=== PATIENT | female | born 1950 | race Hispanic/Latino ===

== ENCOUNTER → 2017-08-29 | Outpatient (CLI) | payer MEDICARE, OTHER ==
[~2017-08-29] MED LIST: ASPIRIN CHEW81 MG PO; AZOR 10-40 MG1 EACH; HEMOCYTE PLUS1 EACH PO; HYDRALAZINE HCL25 MG PO; PANTOPRAZOLE SO40 MG PO; PROZAC20 MG; TRIAMTERENE-HCTZ1 EA PO
--- NOTE | 2017-08-29 19:47 | Diagnostic Imaging Report ---
PROCEDURE:X-RAY ABDOMEN - KUB COMPARISON:Patients [facility], DX, ABDOMEN-1VIEW (KUB), 02/27/2017, 9:49. INDICATIONS:CALCULUS OF THE KIDNEY FINDINGS: There is a non-obstructed bowel-gas pattern with moderate amount of retained stool, which obscures the renal shadows. 1.3 cm, oval-shaped well-circumscribed radiopaque density projecting in the left upper quadrant, likely represents a pill, located located in the stomach. No radiopaque densities project over the renal shadows or expected course of the ureters. Stable amorphous calcification projecting in the midpelvis, likely representing a calcified fibroid. No acute bony abnormalities. Degenerative changes in the lumbosacral spine CONCLUSION: No calcifications project over the genitourinary tract. Carson Bolivar M.D. Dictated by: Carson Bolivar M.D. on 08/29/2017 at 19:54 Electronically approved by: Carson Bolivar M.D. on 08/29/2017 at 19:54
== END ==
LOC: RAD 08:55
PROVIDERS: ATTEND Urology
DX: N20.0 Calculus of kidney (principal)
CPT/HCPCS: 74000

== ENCOUNTER 2018-02-01 00:26 | Emergency (ER) | payer OTHER, MEDICARE ==
[~2018-02-01] VITALS: Ht 152.4 cm; Wt 71.7 kg
--- OUTSIDE RECORDS SUMMARY | 2018-02-01 00:31 | XMS REPORT ---
Author [facility] Address Unknown Phone Unavailable Care Team Providers Care Hogshead Cooper Name Role Phone MALA ARAGON Unavailable Unavailable Problems This patient has no known problems. Allergies, Adverse Reactions, Alerts This patient has no known allergies or adverse reactions. Medications This patient has no known medications. Results Test Description Test Time Test Comments Text Results Atomic Results Result Comments ABDOMEN-1VIEW (KUB) [place] [address] Patient Name: LAVERN KOVACS MR #: [id number] : 1950 Age/Sex: 66/F Req #: [id number] Adm Physician: Ordered by: MALA ARAGON MD Report #: [id number] Location: [facility] Room/Bed: Procedure: [id number] DX/ABDOMEN-1VIEW (KUB) Exam Date: 08/29/17 Exam Time: 0900 REPORT STATUS: Signed PROCEDURE: X-RAY ABDOMEN - KUB COMPARISON: [facility], DX, ABDOMEN-1VIEW ( KUB), 02/27/2017, 9:49. INDICATIONS: CALCULUS OF THE KIDNEY FINDINGS: There is a non-obstructed bowel-gas pattern with moderate amount of retained stool, which obscures the renal shadows. 1.3 cm, oval-shaped well-circumscribed radiopaque density projecting in the left upper quadrant, likely represents a pill, located located in the stomach. No radiopaque densities project over the renal shadows or expected course of the ureters. Stable amorphous calcification projecting in the midpelvis, likely representing a calcified fibroid. No acute bony abnormalities. Degenerative changes in the lumbosacral spine CONCLUSION: No calcifications project over the genitourinary tract. Meagan Bolivar M.D. Dictated by: Meagan Bolivar M.D. on 08/29/2017 at 19:54 Electronically approved by : Meagan Bolivar M.D. on 08/29/2017 at 19:54 Dictated By : MEAGAN BOLIVAR MD 53 Transcribed By: CIARAN on 08/29/171953 COPY TO: MALA ARAGON MD
[2018-02-01 01:39] LABS: CLARITY,URINE CLOUDY (CLEAR); COLOR,URINE RED (YELLOW); LEUKOCYTE ESTERASE ,URINE 1+ (NEGATIVE)
[2018-02-01 01:40] LABS: BILIRUBIN,URINE NEGATIVE (NEGATIVE); KETONES,URINE NEGATIVE (NEGATIVE); NITRITE,URINE NEGATIVE (NEGATIVE); PROTEIN,URINE DIPSTICK 2+ (NEGATIVE); URINE UROBILINOGEN 0.2 mg/dL (0.2 - 1)
[2018-02-01 02:00] LABS: BACTERIA,URINE RARE /HPF; EPITHELIAL CELLS,URINE RARE /LPF; WBC,URINE (MAN) 21-50 /HPF (0-5)
[2018-02-01 02:01] LABS: RBC,URINE >50 /HPF (0-5)
[2018-02-01] MEDS ORDERED: CEFTRIAXONE SOD 1 GM VIAL IV STA (02:04)
[2018-02-01] MEDS ORDERED: SODIUM CHLORIDE 0.9% 500ML 500 ML IV ONE (02:15)
[2018-02-01 02:34] LABS: BASOPHILS # (AUTO) 0.1 (0.0-0.1); BASOPHILS % 0.4 % (0.0-1.0); EOSINOPHILS % 0.2 % (0.0-6.0); HEMATOCRIT 36.9 % (34.2-44.1); HEMOGLOBIN 11.9 g/dL (12.0-16.0); MEAN CORPUSCULAR HGB CONC 32.2 g/dL (31-35); MEAN CORPUSCULAR VOLUME 86.8 fL (81-99); MONOCYTES # (AUTO) 0.9 (0.2-0.8); MONOCYTES % 7.1 % (4.4-11.3); NEUTROPHILS % 76.8 % (38.7-80.0); PLATELET COUNT 209 x10e3/uL (140-360); RED BLOOD COUNT 4.25 x10e6/uL (3.6-5.1); RED CELL DISTRIBUTION WIDTH 13.4 % (11.7-14.4)
--- NOTE | 2018-02-01 02:47 | Diagnostic Imaging Report ---
EXAM: CT ABDOMEN AND PELVIS without IV CONTRAST INDICATION: Hematuria, painful urination COMPARISON: CT of the abdomen and pelvis January 21, 2016 TECHNIQUE: The abdomen and pelvis were scanned using a multidetector helical scanner. Coronal and sagittal reformations were obtained. Renal stone protocol performed. IV Contrast: None Oral Contrast: None CTDIvol has been reviewed. It is below the limits set by the Radiation Protocol Committee (RPC). FINDINGS: LOWER THORAX: No consolidations LIVER: No masses BILIARY: Normal gallbladder. No ductal dilation. SPLEEN: No masses PANCREAS: Fatty infiltration ADRENALS: Stable 1 cm left adrenal gland nodule RIGHT KIDNEY: No nephroureterolithiasis or hydronephrosis. LEFT KIDNEY: No nephroureterolithiasis or hydronephrosis. GI TRACT: No wall thickening or obstruction. Normal appendix. VESSELS: Mild atherosclerotic changes of the abdominal aorta without aneurysm. PERITONEUM/RETROPERITONEUM: No free air or fluid LYMPH NODES: No lymphadenopathy REPRODUCTIVE ORGANS: Calcified uterine fibroids. BLADDER: The bladder is decompressed. Mild pericystic inflammation. SOFT TISSUES: Normal BONES: No suspicious bone lesions. Grade 1 anterolisthesis of L5 with respect to S1. IMPRESSION: No nephroureterolithiasis or hydronephrosis. The bladder is decompressed however there appears to be surrounding inflammation. This can be seen in cystitis. Signed by: Dr. Alejandra Parry M.D. on 02/01/2018 2:43 AM
[2018-02-01 02:54] LABS: ALANINE AMINOTRANSFERASE 12 IU/L (0-55); ALBUMIN/GLOBULIN RATIO 1.1 (0.8-2.0); ALKALINE PHOSPHATASE 87 IU/L (40-150); ANION GAP 17.8 mmol/L (8-16); BLOOD UREA NITROGEN 17 mg/dL (7-26); BUN/CREATININE RATIO 23 (6-25); CALCIUM 9.6 mg/dL (8.4-10.2); CARBON DIOXIDE 24 mmol/L (22-29); CHLORIDE 100 mmol/L (98-107); CREATININE, SERUM 0.74 mg/dL (0.57-1.11); EST GLOMERULAR FILTRATION RATE > 60 ML/MIN (60-); GLUCOSE 116 mg/dL (74-118); POTASSIUM 3.8 mmol/L (3.5-5.1); SODIUM 138 mmol/L (136-145)
[2018-02-01] MEDS ORDERED: CEFTRIAXONE SOD 1 GM VIAL IM STA (03:21)
== END 2018-02-01 04:19 | disposition home or self-care (01) ==
LOC: ER 00:26
DX: R30.0 Dysuria (principal); N30.91 Cystitis, unspecified with hematuria; R10.2 Pelvic and perineal pain
CPT/HCPCS: 36415; 74176; 80053; 81001; 83735; 85025; 87086; 96372; 99283; J0696

== ENCOUNTER → 2018-03-05 | Day surgery (SDC) | payer MEDICARE, OTHER ==
--- NOTE | 2018-02-27 16:12 | Diagnostic Imaging Report ---
PROCEDURE: Frontal and lateral views of the chest. COMPARISON: Patients [facility], , CHEST 2 VIEWS, 11/06/2016, 14:42. INDICATIONS: PRE-OP FINDINGS: Lines/tubes: None. Lungs: The lungs are well inflated and clear. There is no evidence of pneumonia or pulmonary edema. Pleura: There is no pleural effusion or pneumothorax. Heart and mediastinum: Cardiac silhouette is unremarkable. Pulmonary vasculature is normal. Tortuous aorta. Bones: No acute bony abnormality. IMPRESSION: 1. No acute cardiopulmonary abnormalities. Carson Bolivar M.D. Dictated by: Carson Bolivar M.D. on 02/27/2018 at 16:15 Electronically approved by: Carson Bolivar M.D. on 02/27/2018 at 16:15
[2018-02-27 16:13] LABS: BASOPHILS % 0.5 % (0.0-1.0); EOSINOPHILS # (AUTO) 0.1 (0.0-0.4); EOSINOPHILS % 0.7 % (0.0-6.0); HEMATOCRIT 35.8 % (34.2-44.1); HEMOGLOBIN 11.8 g/dL (12.0-16.0); LYMPHOCYTES # (AUTO) 2.6 (1.0-3.2); MONOCYTES # (AUTO) 0.8 (0.2-0.8); MONOCYTES % 9.4 % (4.4-11.3); NEUTROPHILS # (AUTO) 4.8 (2.1-6.9); NEUTROPHILS % 57.9 % (38.7-80.0); PLATELET COUNT 227 x10e3/uL (140-360); RED BLOOD COUNT 4.21 x10e6/uL (3.6-5.1); RED CELL DISTRIBUTION WIDTH 13.7 % (11.7-14.4)
[~2018-03-05] MED LIST changes: +BENAZEPRIL-HCT1 EAC3 PO; +CEFTRIAXONE SOD 1 GM VIAL ONE; +DEXAMETHASONE SOD PHOS INJ 4 MG/ML VIAL ONE; +FENTANYL CITRATE/PF 100MCG/2 ML INJ ONE; +IOPAMIDOL 610MG/1ML 300 MG/ML VIAL IV ONE; +LIDOCAINE HCL 2% LOCAL INJ 5 ML SDV VIAL INJ ONE; +MIDAZOLAM HCL 2 MG/2 ML VIAL ONE; +ONDANSETRON HCL INJ 2 MG/ML VIAL ONE; +POTASSIUM CHLORIDE PO; +PROPOFOL IV EMULSION 10 MG/ML 20 ML VIAL ONE; +SEVOFLURANE INHAL SOLN 250 ML PEN BTL ONE
--- NOTE | 2018-03-05 11:41 | Operative Report ---
DATE OF PROCEDURE: March 05, 2018 PREOPERATIVE DIAGNOSIS: Gross hematuria. POSTOPERATIVE DIAGNOSIS: Gross hematuria. PROCEDURES 1. Cystourethroscopy with bilateral ureteral catheterization and bilateral retrograde pyelograms. 2. Supervision of fluoroscopy. 3. Interpretation of retrograde pyelography. ANESTHESIA: General. ESTIMATED BLOOD LOSS: Minimal. COMPLICATIONS: None. INDICATIONS: Ms. Dennis is a 67-year-old female with a history of gross hematuria. She and I had a long discussion about alternatives, risks and benefits including doing nothing, cystoscopy IVP, retrograde pyelography, ultrasound. Due to the nephrotoxic risks of dye and renal insufficiency, she elected to proceed with retrograde pyelogram. PROCEDURE IN DETAIL: After informed consent was obtained, the patient was preoperatively identified and placed on the operating table, and underwent general anesthesia by the anesthesia service. Was placed in the dorsal lithotomy position and sterilely prepped and draped in the standard fashion for cystoscopy. A 22.5-Japanese cystoscope was inserted per urethra. It was noted to be normal. There were no tumors and no stones. Both ureteral orifices were within normal anatomic location and position and seen to efflux clear urine. Bilateral retrograde pyelograms were performed, which were normal. The bladder was drained. The patient was awakened from anesthesia and transported to the recovery room in excellent condition. SUPERVISION OF FLUOROSCOPY, INTERPRETATION OF RETROGRADE URETERAL PYELOGRAPHY: I was present throughout the entire procedure and I supervised the use of fluoroscopy as there was no radiologist present. Attention was turned toward the left and right ureteral orifices, catheterized with an 8-Japanese cone-tipped catheter. In a retrograde fashion, contrast was injected revealing delicate ureters, delicate pelviceal systems. No evidence of filling defects. No evidence of hydronephrosis. IMPRESSION: Normal retrograde pyelograms. Job#: [id number] CHARLA
== END | disposition home or self-care (01) ==
LOC: OR 05:18
PROVIDERS: ATTEND Urology
DX: N39.0 Urinary tract infection, site not specified (principal); Z87.442 Personal history of urinary calculi; R35.1 Nocturia; I10 Essential (primary) hypertension; R32 Unspecified urinary incontinence; Z01.810 Encounter for preprocedural cardiovascular examination; Z01.812 Encounter for preprocedural laboratory examination; Z01.818 Encounter for other preprocedural examination; Z79.82 Long term (current) use of aspirin; Z68.33 Body mass index [BMI] 33.0-33.9, adult
CPT/HCPCS: 36415; 52005; 71046; 74420; 85025; 93005; J0696; J1100; J2001; J2250; J2405; Q9967

== ENCOUNTER 2018-08-05 07:44 | Emergency (ER) | payer MEDICARE, OTHER ==
[~2018-08-05] VITALS: Ht 152.4 cm; Wt 71.7 kg
[~2018-08-05 07:44] MED LIST changes: -CEFTRIAXONE SOD 1 GM VIAL ONE; -DEXAMETHASONE SOD PHOS INJ 4 MG/ML VIAL ONE; -FENTANYL CITRATE/PF 100MCG/2 ML INJ ONE; -IOPAMIDOL 610MG/1ML 300 MG/ML VIAL IV ONE; -LIDOCAINE HCL 2% LOCAL INJ 5 ML SDV VIAL INJ ONE; -MIDAZOLAM HCL 2 MG/2 ML VIAL ONE; -ONDANSETRON HCL INJ 2 MG/ML VIAL ONE; -PROPOFOL IV EMULSION 10 MG/ML 20 ML VIAL ONE; -SEVOFLURANE INHAL SOLN 250 ML PEN BTL ONE
[2018-08-05] MEDS ORDERED: ACETAMINOPHEN 325 MG TAB PO ONE (08:30)
[2018-08-05] MEDS ORDERED: CEFTRIAXONE SOD 1 GM VIAL IM ONE (08:30)
[2018-08-05 09:25] LABS: CLARITY,URINE CLEAR (CLEAR); COLOR,URINE YELLOW (YELLOW); LEUKOCYTE ESTERASE ,URINE 1+ (NEGATIVE); NITRITE,URINE NEGATIVE (NEGATIVE); PROTEIN,URINE DIPSTICK NEGATIVE (NEGATIVE)
[2018-08-05 09:26] LABS: BILIRUBIN,URINE NEGATIVE (NEGATIVE); EPITHELIAL CELLS,URINE RARE /LPF; KETONES,URINE NEGATIVE (NEGATIVE); RBC,URINE 0-5 /HPF (0-5); URINE UROBILINOGEN 0.2 mg/dL (0.2 - 1)
[2018-08-05] MEDS ORDERED: LIDOCAINE HCL 1% 2 ML AMP ONE (09:30)
[2018-08-05 09:42] VITALS: BP 142/72
== END 2018-08-05 10:20 | disposition home or self-care (01) ==
LOC: ER 07:44
DX: R10.2 Pelvic and perineal pain (principal); N30.00 Acute cystitis without hematuria; I10 Essential (primary) hypertension
CPT/HCPCS: 81001; 99282; J0696; J2001

== ENCOUNTER → 2018-09-17 | Outpatient (CLI) | payer MEDICARE, OTHER ==
--- NOTE | 2018-09-17 15:51 | Diagnostic Imaging Report ---
Exam: Abdominal film Clinical History: Calculus of kidney Comparison: CT abdomen and pelvis without contrast 02/01/2018 DISCUSSION: Frontal view of the abdomen shows a nonobstructive bowel gas pattern with mild amount of retained stool.There are no dilated, air-filled loops of bowel. No radiopaque densities project over the renal shadows or expected course of the ureters. Stable calcified fibroids in the mid pelvis. 7 mm oval-shaped radiopaque density projecting in the left mid to lower quadrant likely represents bowel contents. No acute bone abnormality. Degenerative changes in the lumbosacral spine and bilateral hip joints. IMPRESSION: 1. Nonobstructive bowel gas pattern. 2. No radiopaque densities project over the renal shadows or expected course of the ureters. The staff physician below has personally reviewed this exam on the date of dictation. Signed by: Dr. Carson Bolivar M.D. on 09/17/2018 3:48 PM
== END ==
LOC: RAD 11:31
PROVIDERS: ATTEND Urology
DX: N20.0 Calculus of kidney (principal)
CPT/HCPCS: 74018

== ENCOUNTER 2018-11-10 11:14 | Emergency (ER) | payer MEDICARE, OTHER ==
[~2018-11-10] VITALS: Ht 152.4 cm; Wt 71.7 kg
[2018-11-10] MEDS ORDERED: HEMATINIC-FOLI1 EACH PO (11:41)
[2018-11-10] MEDS ORDERED: VITAMIN C500 M1 PO (11:41)
[2018-11-10] MEDS ORDERED: CALCIUM 500+D1 EACH PO (11:41)
[2018-11-10 12:22] LABS: BASOPHILS % 0.4 % (0.0-1.0); EOSINOPHILS % 0.3 % (0.0-6.0); HEMATOCRIT 38.6 % (34.2-44.1); HEMOGLOBIN 12.4 g/dL (12.0-16.0); LYMPHOCYTES # (AUTO) 1.9 (1.0-3.2); MEAN CORPUSCULAR HEMOGLOBIN 27.9 pg (28-32); MEAN CORPUSCULAR HGB CONC 32.1 g/dL (31-35); MEAN CORPUSCULAR VOLUME 86.7 fL (81-99); MONOCYTES # (AUTO) 0.6 (0.2-0.8); MONOCYTES % 8.1 % (4.4-11.3); NEUTROPHILS # (AUTO) 4.6 (2.1-6.9); NEUTROPHILS % 64.6 % (38.7-80.0); PLATELET COUNT 237 x10e3/uL (140-360); RED BLOOD COUNT 4.45 x10e6/uL (3.6-5.1); RED CELL DISTRIBUTION WIDTH 13.8 % (11.7-14.4)
[2018-11-10 12:24] LABS: CLARITY,URINE CLEAR (CLEAR); COLOR,URINE YELLOW (YELLOW)
[2018-11-10 12:25] LABS: BILIRUBIN,URINE NEGATIVE (NEGATIVE); KETONES,URINE NEGATIVE (NEGATIVE); LEUKOCYTE ESTERASE ,URINE NEGATIVE (NEGATIVE); NITRITE,URINE NEGATIVE (NEGATIVE); PROTEIN,URINE DIPSTICK NEGATIVE (NEGATIVE); URINE UROBILINOGEN 0.2 mg/dL (0.2 - 1)
[2018-11-10 12:29] LABS: EPITHELIAL CELLS,URINE FEW /LPF; RBC,URINE 0-5 /HPF (0-5); WBC,URINE (MAN) 0-5 /HPF (0-5)
[2018-11-10] MEDS ORDERED: ONDANSETRON HCL 4 MG ORAL DISINTEGRATING TAB PO ONE (12:30)
[2018-11-10 12:32] LABS: INR 0.92; PROTHROMBIN TIME 12.8 seconds (11.9-14.5)
[2018-11-10 12:33] LABS: PARTIAL THROMBOPLASTIN TIME 36.6 seconds (23.8-35.5)
[2018-11-10 12:42] LABS: ALANINE AMINOTRANSFERASE 13 IU/L (0-55); ALBUMIN 4.1 g/dL (3.5-5.0); ALKALINE PHOSPHATASE 93 IU/L (40-150); ANION GAP 13.6 mmol/L (8-16); BLOOD UREA NITROGEN 16 mg/dL (7-26); BUN/CREATININE RATIO 23 (6-25); CALCIUM 9.4 mg/dL (8.4-10.2); CARBON DIOXIDE 26 mmol/L (22-29); CHLORIDE 102 mmol/L (98-107); CREATINE KINASE 40 IU/L (29-168); CREATININE, SERUM 0.71 mg/dL (0.57-1.11); EST GLOMERULAR FILTRATION RATE > 60 ML/MIN (60-); GLUCOSE 98 mg/dL (74-118); POTASSIUM 3.6 mmol/L (3.5-5.1); SODIUM 138 mmol/L (136-145)
--- NOTE | 2018-11-10 12:52 | Diagnostic Imaging Report ---
Exam: Head CT without contrast. Indication: Dizziness, weakness for the last few days. Comparisons: Head CT 11/27/2016 (report only). Head CT 11/10/2014. Technique: Axial images were obtained from the skull base to the vertex. Coronal and sagittal images reconstructed from the axial data. Dose modulation, iterative reconstruction, and/or weight based adjustment of the mA/kV was utilized to reduce the radiation dose to as low as reasonably achievable. Findings: Scalp/skull: No abnormalities. Extra-axial spaces: No masses. No fluid collections. Brain sulci: Mildly prominent. Ventricles: Mild compensatory dilatation. No hydrocephalus. Parenchyma: Few scatter hypodensities in the supratentorial white matter are most likely age-related small vessel ischemic changes. No masses, hemorrhage, acute or chronic cortical vascular insults. Sellar/suprasellar region: No abnormalities. Craniocervical junction: Patent foramen magnum. No Chiari one malformation. Incidental findings: Atherosclerotic calcifications in the carotid siphons . Impression: 1. No acute abnormalities. 2. Mild chronic microvascular ischemic changes. A preliminary report was provided by Dr. Malone on 11/10/2018 12:51 PM. The preliminary report was reviewed and a final report issued by Dr. Valdez neuroradiologist on 11/10/2018 at 5:08 PM. Signed by: Dr. Yaneli Valdez M.D. on 11/10/2018 5:09 PM
[2018-11-10 13:28] VITALS: BP 135/64
== END 2018-11-10 13:30 | disposition home or self-care (01) ==
LOC: ER 11:14
DX: R53.1 Weakness (principal); R11.0 Nausea; I10 Essential (primary) hypertension; K21.9 Gastro-esophageal reflux disease without esophagitis; F32.9 Major depressive disorder, single episode, unspecified
CPT/HCPCS: 36415; 70450; 80053; 81001; 82550; 82553; 84484; 85025; 85610; 85730; 87086; 93005; 99284; Q0162

== ENCOUNTER → 2018-11-29 | Outpatient (CLI) | payer OTHER, MEDICARE ==
[~2018-11-29] MED LIST changes: +CALCIUM 500+D1 EACH PO; +HEMATINIC-FOLI1 EACH PO; +VITAMIN C500 M1 PO
--- NOTE | 2018-11-29 10:11 | Diagnostic Imaging Report ---
Exam: Abdominal film Clinical History: Renal stone Comparison: 09/17/2018 DISCUSSION: No suspicious calcifications project over the renal shadows or expected ureteral courses. 7 mm ovoid calcification described on the comparison examination has migrated and now lies in the right paraspinal region. Coarsely calcified degenerated uterine fibroids unchanged. Bowel gas pattern is nonobstructive. Regional skeletal structures are intact with multilevel degenerative disc changes and levoscoliotic curvature of the lumbar spine unchanged. Cholecystectomy clips. Dropped clip projects between the right 11th and 12th ribs. IMPRESSION: No plain film evidence of urolithiasis. Signed by: Dr. Orlando Hou M.D. on 11/29/2018 10:08 AM
== END ==
LOC: RAD 09:41
PROVIDERS: ATTEND Urology
DX: N20.0 Calculus of kidney (principal)
CPT/HCPCS: 74018

== ENCOUNTER → 2019-07-08 | Outpatient (CLI) | payer MEDICARE, OTHER ==
--- NOTE | 2019-07-08 10:21 | Diagnostic Imaging Report ---
Exam: KUB - 2 views Indication: Renal calculi Comparison: KUB of 11/29/2018 Findings: No radiographically apparent renal calculi. Nonobstructive bowel gas pattern. No free air. Status post cholecystectomy. Coarse popcorn calcifications in the pelvis likely related to a fibroid. Phleboliths in the pelvis. Degenerative changes of the visualized spine. Partially visualized lung bases appear clear. Impression: No radiographically apparent renal calculi. Signed by: Harjinder Burns MD on 07/08/2019 10:17 AM
== END ==
LOC: RAD 09:01
PROVIDERS: ATTEND Urology
DX: N20.0 Calculus of kidney (principal)
CPT/HCPCS: 74018

== ENCOUNTER → 2020-02-18 | Outpatient (CLI) | payer MEDICARE, OTHER ==
--- NOTE | 2020-02-18 10:37 | Diagnostic Imaging Report ---
Abdomen, 1 view. History: Renal calculus. Comparison: 07/08/2019. Findings: Air is scattered throughout nondilated small and large bowel. Surgical clips are noted in the right upper quadrant. No calcifications are seen within the region of the kidneys. Calcified uterine fibroid is again noted. The osseous structures are intact. IMPRESSION: Non-specific bowel gas pattern. No radiographically evident renal calcification. Signed by: Bong Rosas on 02/18/2020 10:34 AM
== END ==
LOC: RAD 09:45
PROVIDERS: ATTEND Urology
DX: N20.0 Calculus of kidney (principal)
CPT/HCPCS: 74018

== ENCOUNTER 2020-03-22 06:20 | Emergency (ER) | payer MEDICARE, OTHER ==
[~2020-03-22] VITALS: Ht 152.4 cm; Wt 71.7 kg
[2020-03-22 06:53] LABS: BASOPHILS # (AUTO) 0.1 (0.0-0.1); BASOPHILS % 0.7 % (0.0-1.0); EOSINOPHILS # (AUTO) 0.1 (0.0-0.4); EOSINOPHILS % 0.8 % (0.0-6.0); HEMATOCRIT 41.1 % (34.2-44.1); HEMOGLOBIN 12.9 g/dL (12.0-16.0); LYMPHOCYTES # (AUTO) 2.2 (1.0-3.2); LYMPHOCYTES % 29.3 % (18.0-39.1); MEAN CORPUSCULAR HEMOGLOBIN 27.3 pg (28-32); MEAN CORPUSCULAR HGB CONC 31.4 g/dL (31-35); MEAN CORPUSCULAR VOLUME 86.9 fL (81-99); MONOCYTES # (AUTO) 0.5 (0.2-0.8); MONOCYTES % 6.8 % (4.4-11.3); NEUTROPHILS # (AUTO) 4.7 (2.1-6.9); NEUTROPHILS % 61.6 % (38.7-80.0); PLATELET COUNT 261 x10e3/uL (140-360); RED BLOOD COUNT 4.73 x10e6/uL (3.6-5.1); RED CELL DISTRIBUTION WIDTH 13.7 % (11.7-14.4)
[2020-03-22 07:14] LABS: ALANINE AMINOTRANSFERASE 16 IU/L (0-55); ALBUMIN 4.1 g/dL (3.5-5.0); ALKALINE PHOSPHATASE 76 IU/L (40-150); ANION GAP 15.3 mmol/L (8-16); BLOOD UREA NITROGEN 15 mg/dL (7-26); BUN/CREATININE RATIO 18 (6-25); CALCIUM 9.6 mg/dL (8.4-10.2); CARBON DIOXIDE 27 mmol/L (22-29); CHLORIDE 103 mmol/L (98-107); CREATINE KINASE 34 IU/L (29-168); CREATININE, SERUM 0.82 mg/dL (0.57-1.11); EST GLOMERULAR FILTRATION RATE > 60 ML/MIN (60-); GLUCOSE 123 mg/dL (74-118); POTASSIUM 4.3 mmol/L (3.5-5.1); SODIUM 141 mmol/L (136-145)
[2020-03-22 07:33] LABS: CLARITY,URINE CLEAR (CLEAR); COLOR,URINE YELLOW (YELLOW)
[2020-03-22 07:34] LABS: BILIRUBIN,URINE NEGATIVE (NEGATIVE); KETONES,URINE NEGATIVE (NEGATIVE); LEUKOCYTE ESTERASE ,URINE NEGATIVE (NEGATIVE); NITRITE,URINE NEGATIVE (NEGATIVE); PROTEIN,URINE DIPSTICK NEGATIVE (NEGATIVE); RBC,URINE 0-5 /HPF (0-5); URINE UROBILINOGEN 0.2 mg/dL (0.2 - 1); WBC,URINE (MAN) 0-5 /HPF (0-5)
[2020-03-22 07:35] LABS: BACTERIA,URINE RARE /HPF; EPITHELIAL CELLS,URINE FEW /LPF
--- NOTE | 2020-03-22 07:54 | Emergency Department Note ---
History of Present Illnes History of Present Illness Chief Complaint: COVID PUI History of Present Illness This is a 69 year old female 69 Y/O FEMALE PT AAOX3 PRESENTS TO ED WITH INTERMITTENT "LIGHT HEADACHE" X8 DAYS. [employer] Required: No Onset (how long ago): day(s) (8) Location: head Quality: ache Radiation: Reports non-radiation Severity: mild Onset quality: gradual Timing of current episode: intermittent Progression: waxing and waning Chronicity: new Context: Denies recent illness Relieving factors: none Exacerbating factors: none Associated symptoms: Reports denies other symptoms Treatments prior to arrival: none Past Medical/Family History Physician Review I have reviewed the patient's past medical and family history. Any updates have been documented here. Past Medical History Recent Fever: Yes Clinical Suspicion of Infectio: No New/Unexplained Change in Ment: No Past Medical History: Hypertension, UTI's, Anxiety Other Medical History: DEPRESSION HYPOKALEMIA KIDNEY STONES GASTRIC ULCER ANEMIA HIATAL HERNIA GASTRITIS ESOPHAGITIS Past Surgical History: Cholecysctectomy, Other Surgery: Social History Smoking Cessation: Never Smoker Counseling Performed: No Alcohol Use: None Any Illegal Drug Use: No TB Exposure/Symptoms: No Physically hurt or threatened: No Family History Family history of heart diseas: No Other Last Tetanus: UNK Any Pre-Existing Lines (PICC,: No Review of Systems Review of Systems Constitutional: Reports weakness EENTM: Reports no symptoms Cardiovascular: Reports no symptoms Respiratory: Reports no symptoms Gastrointestinal: Reports no symptoms Genitourinary: Reports no symptoms Musculoskeletal: Reports no symptoms Integumentary: Reports no symptoms Neurological: Reports as per HPI, Reports headache Psychological: Reports no symptoms Endocrine: Reports no symptoms Hematological/Lymphatic: Reports no symptoms Physical Exam Related Data Allergies: Coded Allergies: No Known Allergies (Unverified , 08/05/18) Triage Vital Signs Vital Signs Date Time Temp Pulse Resp B/P (MAP) Pulse Ox O2 Delivery O2 Flow Rate FiO2 03/22/20 06:27 98.8 96 16 158/64 100 Room Air Vital signs reviewed: Yes Physical Exam CONSTITUTIONAL Constitutional: Present well-developed, Present well-nourished HENT HENT: Present normocephalic, Present atraumatic, Present oropharynx clear/mo ist, Present nose normal, Present other (no temporal artery tenderness, no ocular bruits) HENT L/R: Present left ext ear normal, Present right ext ear normal EYES Eyes: Reports PERRL, Reports conjunctivae normal, Reports other (no papilledema) NECK Neck: Present ROM normal; Absent carotid bruit PULMONARY Pulmonary: Present effort normal, Present breath sounds normal CARDIOVASCULAR Cardiovascular: Present regular rhythm, Present heart sounds normal, Present capillary refill normal, Present normal rate GASTROINTESTINAL Abdominal: Present soft, Present nontender, Present bowel sounds normal GENITOURINARY Genitourinary: Present exam deferred SKIN Skin: Present warm, Present dry MUSCULOSKELETAL Musculoskeletal: Present ROM normal NEUROLOGICAL Neurological: Present alert, Present oriented x 3, Present no gross motor or sensory deficits; Absent cranial nerve deficit, Absent sensory deficit, Absent abnormal gait, Absent weakness PSYCHOLOGICAL Psychological: Present mood/affect normal, Present judgement normal Results Laboratory Result Diagram: 03/22/20 0640 03/22/20 0640 Laboratory Laboratory Tests Test 03/22/20 06:43 03/22/20 06:40 Urine Color Yellow (YELLOW) Urine Clarity Clear (CLEAR) Urine pH 7.5 (5 - 7) Urine Specific [place] 1.025 (1.010-1.025) Urine Protein Negative (NEGATIVE) Urine Glucose (UA) Negative (NEGATIVE) Urine Ketones Negative (NEGATIVE) Urine Blood Negative (NEGATIVE) Urine Nitrite Negative (NEGATIVE) Urine Bilirubin Negative (NEGATIVE) Urine Urobilinogen 0.2 mg/dL (0.2 - 1) Urine Leukocyte Esterase Negative (NEGATIVE) Urine RBC 0-5 /HPF (0-5) Urine WBC 0-5 /HPF (0-5) Urine Epithelial Cells Few /LPF (NONE) Urine Bacteria Rare /HPF (NONE) White Blood Count 7.64 x10e3/uL (4.8-10.8) Red Blood Count 4.73 x10e6/uL (3.6-5.1) Hemoglobin 12.9 g/dL (12.0-16.0) Hematocrit 41.1 % (34.2-44.1) Mean Corpuscular Volume 86.9 fL (81-99) Mean Corpuscular Hemoglobin 27.3 pg (28-32) Mean Corpuscular Hemoglobin Concent 31.4 g/dL (31-35) Red Cell Distribution Width 13.7 % (11.7-14.4) Platelet Count 261 x10e3/uL (140-360) Neutrophils (%) (Auto) 61.6 % (38.7-80.0) Lymphocytes (%) (Auto) 29.3 % (18.0-39.1) Monocytes (%) (Auto) 6.8 % (4.4-11.3) Eosinophils (%) (Auto) 0.8 % (0.0-6.0) Basophils (%) (Auto) 0.7 % (0.0-1.0) Neutrophils # (Auto) 4.7 (2.1-6.9) Lymphocytes # (Auto) 2.2 (1.0-3.2) Monocytes # (Auto) 0.5 (0.2-0.8) Eosinophils # (Auto) 0.1 (0.0-0.4) Basophils # (Auto) 0.1 (0.0-0.1) Absolute Immature Granulocyte (auto 0.06 x10e3/uL (0-0.1) Sodium Level 141 mmol/L (136-145) Potassium Level 4.3 mmol/L (3.5-5.1) Chloride Level 103 mmol/L (98-107) Carbon Dioxide Level 27 mmol/L (22-29) Anion Gap 15.3 mmol/L (8-16) Blood Urea Nitrogen 15 mg/dL (7-26) Creatinine 0.82 mg/dL (0.57-1.11) Estimat Glomerular Filtration Rate > 60 ML/MIN (60-) BUN/Creatinine Ratio 18 (6-25) Glucose Level 123 mg/dL (74-118) Calcium Level 9.6 mg/dL (8.4-10.2) Total Bilirubin 0.7 mg/dL (0.2-1.2) Aspartate Amino Transf (AST/SGOT) 22 IU/L (5-34) Alanine Aminotransferase (ALT/SGPT) 16 IU/L (0-55) Alkaline Phosphatase 76 IU/L (40-150) Creatine Kinase 34 IU/L (29-168) Creatine Kinase MB 0.60 ng/mL (0-5.0) Troponin I 0.001 ng/mL (0-0.300) Total Protein 8.3 g/dL (6.5-8.1) Albumin 4.1 g/dL (3.5-5.0) Globulin 4.2 g/dL (2.3-3.5) Albumin/Globulin Ratio 1.0 (0.8-2.0) Lab results reviewed: Yes Imaging Imaging results reviewed: Yes Impressions Procedure: [id number] CT/CT BRAIN WO Exam Date: 03/22/20 Exam Time: 07 REPORT STATUS: Signed Examination: CT head without contrast Clinical Indication: Headache; generalized weakness. Technique: Transaxial noncontrast images from the skull base through the vertex were obtained. Sagittal and coronal reformatted images were done. Dose modulation, iterative reconstruction, and/or weight based adjustment of the mA/kV was utilized to reduce the radiation dose to as low as reasonably achievable. Comparison: Head CT dated November 10, 2018. Findings: Scalp: No abnormalities. Bones: Intact. No fractures. No blastic or lytic lesions. Unchanged left occipital exostosis. Brain sulci: Appropriate for patient's age. Ventricles: No hydrocephalus. Extra-axial space: No abnormalities. Parenchyma: There are subtle patchy areas of low-attenuation within subcortical and periventricular white matter, nonspecific, but could represent microvascular ischemic disease. No masses, hemorrhage, or acute or chronic cortical based vascular insults. Suprasellar region: No abnormalities. Craniocervical junction: The foramen magnum is patent. No Chiari one malformation. Impression: 1. No acute intracranial finding when compared to prior head CT dated November 10, 2018. 2. Unchanged chronic microvascular ischemic change. Signed by: Dr. Maribel Estevez M.D. on 03/22/2020 8:01 AM Examination: Single AP view of the chest. COMPARISON: None. INDICATION: Weakness DISCUSSION: Lines/tubes: None. Lungs: The lungs are well inflated and clear. No pneumonia or pulmonary edema. Pleura: No pleural effusion or pneumothorax. Heart and mediastinum: The heart and the mediastinum are unremarkable. Bones and soft tissues: No acute bony abnormalities. IMPRESSION: 1. No acute cardiopulmonary abnormalities. Signed by: Dr. Sunny Chavez M.D. on 03/22/2020 8:33 AM Procedures 12 Lead ECG Interpretation ECG Interpretation : ECG: ECG 1 Manager Golf: Interpreted by ED physician Date: Mar 22, 2020 Time: 06:44 Rhythm: sinus rhythm Rate: normal (72) QRS axis: normal ST segments normal: Yes T wave inversion: V1, V2 T waves flattening: III, aVL, V3, V4, V5, V6 Clinical Impression: abnormal ECG Assessment & Plan Medical Decision Making MDM cbc, chem's, ecg, cardiac enzymes, ua, CT brain - r/o cerebral bleed, cva, renal insuff, electrolyte abnl, uti, pneumonia, cardiomegaly Reassessment Reassessment pt currently with no headache, take Tylenol as directed Assessment & Plan Final Impression: (1) Headache Depart Disposition: HOME, SELF-CARE Last Vital Signs Date Time Temp Pulse Resp B/P (MAP) Pulse Ox O2 Delivery O2 Flow Rate FiO2 03/22/20 06:27 98.8 96 16 158/64 100 Room Air Home Meds Reported Medications Ferrous Fumarate/Folic Acid (HEMATINIC-FOLIC ACID TABLET) 1 Each Tablet, 1 TAB PO DAILY 11/10/18 Ascorbic Acid (VITAMIN C) 500 Mg Tablet, 500 MG PO DAILY 11/10/18 Calcium Carbonate/Vitamin D3 (CALCIUM 500+D TABLET CHEW) 1 Each Tab.chew, 1 TAB PO DAILY 11/10/18 [Potassium Chloride] No Conflict Check, 8 MEQ PO DAILY 03/01/18 Benazepril/Hydrochlorothiazide (BENAZEPRIL-HCTZ 20-25 MG TAB) 1 Each Tablet, PO DAILY 03/01/18 Hydralazine Hcl (HYDRALAZINE HCL) 25 Mg Tab, 25 MG PO BID, TAB 11/27/16 Pantoprazole Sodium* (PROTONIX) 40 Mg Tablet.dr, 40 MG PO DAILY, TAB 08/05/16 Fluoxetine Hcl (PROZAC) 20 Mg Capsule, 20 MG DAILY, #30 TAB 11/10/14 KIRAN RIVERA MD Mar 22, 2020 07:53
--- NOTE | 2020-03-22 08:04 | Diagnostic Imaging Report ---
Examination: CT head without contrast Clinical Indication: Headache; generalized weakness. Technique: Transaxial noncontrast images from the skull base through the vertex were obtained. Sagittal and coronal reformatted images were done. Dose modulation, iterative reconstruction, and/or weight based adjustment of the mA/kV was utilized to reduce the radiation dose to as low as reasonably achievable. Comparison: Head CT dated November 10, 2018. Findings: Scalp: No abnormalities. Bones: Intact. No fractures. No blastic or lytic lesions. Unchanged left occipital exostosis. Brain sulci: Appropriate for patient's age. Ventricles: No hydrocephalus. Extra-axial space: No abnormalities. Parenchyma: There are subtle patchy areas of low-attenuation within subcortical and periventricular white matter, nonspecific, but could represent microvascular ischemic disease. No masses, hemorrhage, or acute or chronic cortical based vascular insults. Suprasellar region: No abnormalities. Craniocervical junction: The foramen magnum is patent. No Chiari one malformation. Impression: 1. No acute intracranial finding when compared to prior head CT dated November 10, 2018. 2. Unchanged chronic microvascular ischemic change. Signed by: Dr. Maribel Estevez M.D. on 03/22/2020 8:01 AM
[2020-03-22 08:11] VITALS: BP 158/64
--- NOTE | 2020-03-22 08:36 | Diagnostic Imaging Report ---
Examination: Single AP view of the chest. COMPARISON: None. INDICATION: Weakness DISCUSSION: Lines/tubes: None. Lungs: The lungs are well inflated and clear. No pneumonia or pulmonary edema. Pleura: No pleural effusion or pneumothorax. Heart and mediastinum: The heart and the mediastinum are unremarkable. Bones and soft tissues: No acute bony abnormalities. IMPRESSION: 1. No acute cardiopulmonary abnormalities. Signed by: Dr. Sunny Chavez M.D. on 03/22/2020 8:33 AM
== END 2020-03-22 09:01 | disposition home or self-care (01) ==
LOC: ER 06:30
DX: R51 Headache (principal); I10 Essential (primary) hypertension; F41.9 Anxiety disorder, unspecified
CPT/HCPCS: 36415; 70450; 71045; 80053; 81001; 82550; 82553; 84484; 85025; 93005; 99283

== ENCOUNTER 2020-12-29 12:38 | Emergency (ER) | payer MEDICARE, OTHER ==
[~2020-12-29] VITALS: Ht 152.4 cm; Wt 71.7 kg
[2020-12-29] MEDS ORDERED: MACROBID 100 M100 MG PO (13:14)
[2020-12-29] MEDS ORDERED: LEVOFLOXACIN250 MG PO (13:14)
[2020-12-29] MEDS ORDERED: ZESTORETIC 20-1 EAC1 PO (13:14)
[2020-12-29 14:02] LABS: CLARITY,URINE CLEAR (CLEAR); COLOR,URINE YELLOW (YELLOW)
[2020-12-29 14:03] LABS: KETONES,URINE TRACE (NEGATIVE); LEUKOCYTE ESTERASE ,URINE NEGATIVE (NEGATIVE); NITRITE,URINE NEGATIVE (NEGATIVE); PROTEIN,URINE DIPSTICK NEGATIVE (NEGATIVE); URINE UROBILINOGEN 0.2 mg/dL (0.2 - 1)
[2020-12-29 14:11] LABS: BASOPHILS % 0.4 % (0.0-1.0); EOSINOPHILS % 0.1 % (0.0-6.0); HEMATOCRIT 34.6 % (34.2-44.1); HEMOGLOBIN 11.7 g/dL (12.0-16.0); LYMPHOCYTES # (AUTO) 0.8 (1.0-3.2); LYMPHOCYTES % 10.7 % (18.0-39.1); MEAN CORPUSCULAR HEMOGLOBIN 28.2 pg (28-32); MEAN CORPUSCULAR HGB CONC 33.8 g/dL (31-35); MEAN CORPUSCULAR VOLUME 83.4 fL (81-99); MONOCYTES # (AUTO) 0.5 (0.2-0.8); MONOCYTES % 6.4 % (4.4-11.3); NEUTROPHILS % 81.9 % (38.7-80.0); PLATELET COUNT 272 x10e3/uL (140-360); RED BLOOD COUNT 4.15 x10e6/uL (3.6-5.1); RED CELL DISTRIBUTION WIDTH 13.3 % (11.7-14.4)
[2020-12-29 14:18] LABS: BACTERIA,URINE RARE /HPF; EPITHELIAL CELLS,URINE FEW /LPF; MUCUS,URINE RARE (RARE); WBC,URINE (MAN) 0-5 /HPF (0-5)
[2020-12-29 14:35] LABS: INR 0.97; PROTHROMBIN TIME 13.5 seconds (11.9-14.5)
[2020-12-29 14:36] LABS: PARTIAL THROMBOPLASTIN TIME 35.9 seconds (23.8-35.5)
[2020-12-29 14:43] LABS: ALANINE AMINOTRANSFERASE 14 IU/L (0-55); ALBUMIN/GLOBULIN RATIO 1.1 (0.8-2.0); ALKALINE PHOSPHATASE 62 IU/L (40-150); ANION GAP 15.9 mmol/L (8-16); BLOOD UREA NITROGEN 15 mg/dL (7-26); BUN/CREATININE RATIO 21 (6-25); CALCIUM 8.9 mg/dL (8.4-10.2); CARBON DIOXIDE 22 mmol/L (22-29); CHLORIDE 97 mmol/L (98-107); CREATINE KINASE 42 IU/L (29-168); CREATININE, SERUM 0.71 mg/dL (0.57-1.11); EST GLOMERULAR FILTRATION RATE > 60 ML/MIN (60-); GLUCOSE 129 mg/dL (74-118); MAGNESIUM 1.9 MG/DL (1.3-2.1); SODIUM 132 mmol/L (136-145)
[2020-12-29 14:51] LABS: POTASSIUM 2.9 mmol/L (3.5-5.1)
[2020-12-29] MEDS ORDERED: POTASSIUM CHLORIDE 20 MEQ TAB CR PO STA (14:51)
[2020-12-29 15:02] LABS: THYROID STIMULATING HORMONE 1.202 uIU/mL (0.350-4.940)
== END 2020-12-29 17:14 | disposition home or self-care (01) ==
LOC: ER 13:11
DX: R53.1 Weakness (principal); R06.02 Shortness of breath; E87.6 Hypokalemia; R94.31 Abnormal electrocardiogram [ECG] [EKG]; I10 Essential (primary) hypertension; D64.9 Anemia, unspecified; F41.9 Anxiety disorder, unspecified; K21.9 Gastro-esophageal reflux disease without esophagitis; Z20.822 Contact with and (suspected) exposure to COVID-19
CPT/HCPCS: 36415; 71045; 80053; 81001; 82550; 82553; 83735; 83880; 84443; 84484; 85025; 85610; 85730; 87040; 87086; 99284; U0002; 93005

== ENCOUNTER → 2021-02-10 | Outpatient (CLI) | payer MEDICARE, OTHER ==
[~2021-02-10] MED LIST changes: +GADOBENATE DIMEGLUMINE 1 ML IV ONE; +LEVOFLOXACIN250 MG PO; +MACROBID 100 M100 MG PO; +ZESTORETIC 20-1 EAC1 PO
== END ==
LOC: NM 08:09
PROVIDERS: ATTEND Radiology Body Imaging
DX: C14.0 Malignant neoplasm of pharynx, unspecified (principal)
CPT/HCPCS: 70543; 70553; 78306; A9503; A9570; A9577